=== PATIENT | male | born 1990 | race Caucasian/White ===

== ENCOUNTER → 2017-01-20 | Outpatient (CLI) | payer OTHER ==
[~2017-01-20] MED LIST: NAPROXEN500 MG PO
== END | disposition home or self-care (01) ==
LOC: EKG 13:00
DX: I05.1 Rheumatic mitral insufficiency (principal); R94.31 Abnormal electrocardiogram [ECG] [EKG]; Z82.49 Family history of ischemic heart disease and other diseases of the circulatory system
CPT/HCPCS: 93306